=== PATIENT | male | born 1970 ===

== ENCOUNTER 2018-03-21 05:43 | Day surgery (SDC) | payer OTHER ==
[2018-03-21] MEDS ORDERED: PERCOCET 5-3251 EACH PO (10:33)
[2018-03-21] MEDS ORDERED: NEURONTIN300 MG PO (10:34)
[2018-03-21] MEDS ORDERED: MIRALAX17 GM PO (10:35)
== END 2018-03-21 12:20 | disposition home or self-care (01) ==
LOC: CIR.AMB 05:43
DX: K40.20 Bilateral inguinal hernia, without obstruction or gangrene, not specified as recurrent (principal)

== ENCOUNTER 2020-12-16 05:45 | Day surgery (SDC) | payer OTHER ==
[~2020-12-16 05:45] MED LIST: MIRALAX17 GM PO; NEURONTIN300 MG PO; PERCOCET 5-3251 EACH PO
[2020-12-16] MEDS ORDERED: PERCOCET 5-3251 EACH PO (11:00)
[2020-12-16] MEDS ORDERED: NEURONTIN600 M1 PO (11:01)
[2020-12-16] MEDS ORDERED: COLACE100 MG PO (11:01)
== END 2020-12-16 14:20 | disposition home or self-care (01) ==
LOC: CIR.AMB 05:45
PROVIDERS: ATTEND Surgery
DX: K40.91 Unilateral inguinal hernia, without obstruction or gangrene, recurrent (principal); D17.6 Benign lipomatous neoplasm of spermatic cord; Z20.822 Contact with and (suspected) exposure to COVID-19

== ENCOUNTER 2023-04-29 07:24 | Outpatient (CLI) | payer OTHER ==
[~2023-04-29 07:24] MED LIST changes: +COLACE100 MG PO; +NEURONTIN600 M1 PO
[2023-04-29 09:39] LABS: HEMATOCRIT 43.2 % (39.0-48.0); HEMOGLOBIN 15.1 g/dL (13-16.00); MEAN CELL VOLUME 87.2 fL (80.0-100.00); MEAN CORPUSCULAR HEMOGLOBIN 30.5 pg (27.00-32.0); PLATELET COUNT 220 K/uL (150-450); RED BLOOD COUNT 4.95 M/uL (4.00-6.00); RED CELL DISTRIBUTION WIDTH 13.6 % (11.5-14.5)
[2023-04-29 09:51] LABS: INR 1.03; PARTIAL THROMBOPLASTIN TIME 26.3 SECONDS (22.0-34.0); PROTHROMBIN TIME 10.8 SECONDS (9.0-11.5)
[2023-04-29 09:59] LABS: CALCIUM 9.3 mg/dL (8.5-10.1); CREATININE SERUM 1.06 mg/dL (0.70-1.30); GFR 73.36; POTASSIUM 4.74 mEq/L (3.5-5.1)
== END 2023-04-29 07:25 | disposition home or self-care (01) ==
LOC: LAB 07:24
PROVIDERS: ATTEND Surgery
DX: Z01.818 Encounter for other preprocedural examination (principal); K40.91 Unilateral inguinal hernia, without obstruction or gangrene, recurrent; Z20.818 Contact with and (suspected) exposure to other bacterial communicable diseases; Z20.822 Contact with and (suspected) exposure to COVID-19